=== PATIENT | male | born 1965 | race American Indian/Alaskan Native ===

== ENCOUNTER 2017-07-02 12:50 | Emergency (ER) | payer OTHER ==
[2017-07-02 15:03] LABS: Basophils % (Auto) 0.6 % (0.0-1.8); Eosinophils % (Auto) 2.3 % (0.0-4.3); Hematocrit 37.8 % (35.5-45.6); Hemoglobin 12.5 gm/dl (11.8-15.2); Mean Corpuscular HGB Conc 33 % (32-34); Mean Corpuscular Hemoglobin 30 pg (28-32); Mean Corpuscular Volume 91 fl (84-94); Platelet Count 317 K/mm3 (140-440); Red Blood Count 4.15 M/mm3 (3.65-5.03); Red Cell Distribution Width 12.3 % (13.2-15.2); White Blood Count 5.1 K/mm3 (4.5-11.0)
[2017-07-02 15:10] LABS: Anion Gap 18 mmol/L; BUN/Creatinine Ratio 12; Blood Urea Nitrogen 12 mg/dL (9-20); Calcium 8.7 mg/dL (8.4-10.2); Carbon Dioxide 24 mmol/L (22-30); Glucose 83 mg/dL (75-100); Potassium 4.6 mmol/L (3.6-5.0); Sodium 143 mmol/L (137-145)
[2017-07-02 15:54] LABS: Urine Drugs of Abuse Note Disclamer
[2017-07-02 16:06] LABS: Bilirubin,Urine NEG (Negative); Blood,Urine NEG (Negative); Ketones,Urine NEG (Negative); Leukocyte Esterase,Urine NEG (Negative); Mucus,Urine FEW /HPF; Nitrite,Urine NEG (Negative); Protein,Urine <15 mg/dL mg/dL (Negative); Urobilinogen,Urine < 2.0 mg/dL (<2.0)
--- NOTE | 2017-07-02 17:58 | Emergency Department Report ---
ED Psych HPI - General Chief Complaint: Psych Stated Complaint: /101 Time Seen by Provider: 07/02/17 14:47 Source: patient Mode of arrival: Ambulatory - History of Present Illness Initial Comments: Patient states that he has been under a lot of stress. He's had suicidal and homicidal ideation. He states that he was contemplating killing his daughter's mother. He is currently not on psychiatric medication. He does admit to depression. MD Complaint: suicidal ideation, other -: days(s) Associated Psychiatric Symptoms: suicidal ideation, homicidal ideation History of same: No Quality: intermittent Improves With: none Worsens With: none Associated Symptoms: denies other symptoms Treatments Prior to Arrival: none If Self Harm: admits thoughts of - Related Data Allergies Allergy/AdvReac Type Severity Reaction Status Date / Time No Known Allergies Allergy Unverified 07/02/17 14:11 ED Review of Systems ROS: Stated complaint: /1012 Other details as noted in HPI Constitutional: denies: chills, fever Eyes: denies: eye pain, eye discharge, vision change ENT: denies: ear pain, throat pain Respiratory: denies: cough, shortness of breath, wheezing Cardiovascular: denies: chest pain, palpitations Endocrine: no symptoms reported Gastrointestinal: denies: abdominal pain, nausea, diarrhea Genitourinary: denies: urgency, dysuria Musculoskeletal: denies: back pain, joint swelling, arthralgia Skin: denies: rash, lesions Neurological: denies: headache, weakness, paresthesias Psychiatric: as per HPI, homicidal thoughts, suicidal thoughts. denies: anxiety , depression Hematological/Lymphatic: denies: easy bleeding, easy bruising ED Past Medical Hx - Past Medical History Hx Hypertension: Yes - Surgical History Hx Pacemaker: No - Social History Smoking Status: Current Every Day Smoker Substance Use Type: Alcohol, Marijuana ED Physical Exam - General Limitations: No Limitations General appearance: alert, in no apparent distress - Head Head exam: Present: atraumatic, normocephalic - Eye Eye exam: Present: normal appearance, PERRL, EOMI. Absent: scleral icterus - ENT ENT exam: Present: mucous membranes moist - Neck Neck exam: Present: normal inspection - Respiratory Respiratory exam: Present: normal lung sounds bilaterally. Absent: respiratory distress - Cardiovascular Cardiovascular Exam: Present: regular rate, normal rhythm. Absent: systolic murmur, diastolic murmur, rubs, gallop - GI/Abdominal GI/Abdominal exam: Present: soft, normal bowel sounds. Absent: distended, tenderness, guarding, rebound, rigid - Rectal Rectal exam: Present: deferred - Extremities Exam Extremities exam: Present: normal inspection - Back Exam Back exam: Present: normal inspection - Neurological Exam Neurological exam: Present: alert, oriented X3, CN II-XII intact. Absent: motor sensory deficit - Psychiatric Psychiatric exam: Present: normal mood, flat affect - Skin Skin exam: Present: warm, dry, intact, normal color. Absent: rash ED Course Vital Signs 07/02/17 07/02/17 13:32 14:00 Temperature 98.6 F Pulse Rate 77 Respiratory 20 Rate Blood Pressure 128/70 [Left] O2 Sat by Pulse 98 100 Oximetry - Reevaluation(s) Reevaluation #1: 1013 is initiated. Discussed with the mental health counselor. The patient will be placed. 07/02/17 17:58 ED Medical Decision Making - Lab Data Result diagrams: 07/02/17 14:28 07/02/17 14:28 Laboratory Results - last 24 hr 07/02/17 07/02/17 07/02/17 14:00 14:00 14:28 WBC RBC Hgb Hct MCV MCH MCHC RDW Plt Count Lymph % (Auto) Chambers % (Auto) Eos % (Auto) Baso % (Auto) Lymph # Chambers # Eos # Baso # Seg Neutrophils % Seg Neutrophils # Sodium 143 Potassium 4.6 Chloride 106.0 Carbon Dioxide 24 Anion Gap 18 BUN 12 Creatinine 1.0 Estimated GFR > 60 BUN/Creatinine Ratio 12 Glucose 83 Calcium 8.7 Urine Color Barbi Urine Turbidity Clear Urine pH 5.0 Ur Specific [place] 1.018 Urine Protein <15 mg/dl Urine Glucose (UA) Neg Urine Ketones Neg Urine Blood Neg Urine Nitrite Neg Urine Bilirubin Neg Urine Urobilinogen < 2.0 Ur Leukocyte Esterase Neg Urine WBC (Auto) 1.0 Urine RBC (Auto) 9.0 Urine Mucus Few Urine Opiates Screen Presumptive negative Urine Methadone Screen Presumptive negative Ur Barbiturates Screen Presumptive negative Ur Phencyclidine Scrn Presumptive negative Ur Amphetamines Screen Presumptive negative U Benzodiazepines Scrn Presumptive negative Urine Cocaine Screen Presumptive negative U Marijuana (THC) Screen Presumptive positive Drugs of Abuse Note Disclamer Plasma/Serum Alcohol 07/02/17 07/02/17 14:28 14:28 WBC 5.1 RBC 4.15 Hgb 12.5 Hct 37.8 MCV 91 MCH 30 MCHC 33 RDW 12.3 L Plt Count 317 Lymph % (Auto) 26.2 Chambers % (Auto) 7.6 H Eos % (Auto) 2.3 Baso % (Auto) 0.6 Lymph # 1.3 Chambers # 0.4 Eos # 0.1 Baso # 0.0 Seg Neutrophils % 63.3 Seg Neutrophils # 3.2 Sodium Potassium Chloride Carbon Dioxide Anion Gap BUN Creatinine Estimated GFR BUN/Creatinine Ratio Glucose Calcium Urine Color Urine Turbidity Urine pH Ur Specific [place] Urine Protein Urine Glucose (UA) Urine Ketones Urine Blood Urine Nitrite Urine Bilirubin Urine Urobilinogen Ur Leukocyte Esterase Urine WBC (Auto) Urine RBC (Auto) Urine Mucus Urine Opiates Screen Urine Methadone Screen Ur Barbiturates Screen Ur Phencyclidine Scrn Ur Amphetamines Screen U Benzodiazepines Scrn Urine Cocaine Screen U Marijuana (THC) Screen Drugs of Abuse Note Plasma/Serum Alcohol < 0.01 Critical care attestation.: If time is entered above; I have spent that time in minutes in the direct care of this critically ill patient, excluding procedure time. ED Disposition Clinical Impression: Homicidal ideation, Suicidal ideation Depression Qualifiers: Depression Type: unspecified Qualified Code(s): F32.9 - Major depressive disorder, single episode, unspecified Disposition: [id number]/[id number] PSY HOSP/PSY UNIT Is pt being admited?: No Does the pt Need Aspirin: No Condition: Stable Referrals: PRIMARY CAREMD [Primary Care Provider] - 3-5 Days Time of Disposition: 18:01
[2017-07-02] MEDS ORDERED: ALUM-MAG HYDROX-SIMETH 200-200-20MG/5ML PO PRN (18:01)
[2017-07-02] MEDS ORDERED: TYLENOL PO PRN (18:01)
[2017-07-02] MEDS ORDERED: MILK OF MAGNESIA PO PRN (18:01)
--- NOTE | 2017-07-03 16:28 | Consultation ---
History of Present Illness - Reason for Consult Reason for consult: suicidal thoughts - History of Present Psychiatric Illness This is a 52-year-old man with a psychiatric history of major depression who presents to the ER due to recent expression of suicidal thoughts. Patient notes that he was at a treatment center where he was getting evaluated when he informed them of his ongoing social stressors and consequent suicidal thinking. At that time police were called and he was brought to the ER. Patient notes that he has had difficulties for several years but most recently patient has lost his source of income due to inability to play child support. Consequently , patient does not see a way to improve his social and financial situation. Patient is expressing that he is having intrusive thoughts of dying as well as harming his ex. General Appearance: casually dressed, no acute distress Sensorium/Consciousness: alert and responding to external stimuli; clear Orientation: person, place, time and situation Eye Contact: fair Attitude / Behavior: cooperative Psychomotor & Musculoskeletal Activity: WNL Mood: ok Affect: constricted, limited range Speech / Language: fluent, with normal rate/rhythm/tone Thought Processes: organized, logical, linear Thought Content: +SI/HI Perception: no AVH Insight: limited Judgement: limitied Capacity for ADLs: independent Plan: Refer for inpatient psychiatric hospitalization Start Celexa 20 mg by mouth every morning Medications and Allergies Allergies Allergy/AdvReac Type Severity Reaction Status Date / Time No Known Allergies Allergy Unverified 07/02/17 14:11 Home Medications Medication Instructions Recorded Confirmed Last Taken Type No Known Home Medications [No 07/02/17 07/02/17 Unknown History Reported Home Medications] Active Meds: Active Medications Acetaminophen (Tylenol) 650 mg PO Q4HR PRN PRN Reason: Pain MILD(1-3)/Fever >100.5/LI Al Hydrox/Mg Hydrox/Simethicone (Alum-Mag Hydrox-Simeth 510-447-24wh/5ml) 30 ml PO Q4HR PRN PRN Reason: Indigestion Magnesium Hydroxide (Milk Of Magnesia) 30 ml PO Q12HR PRN PRN Reason: Constipation Mental Status Exam - Vital signs Last Vital Signs Temp 97.9 F 07/03/17 12:26 Pulse 56 L 07/03/17 12:26 Resp 16 07/03/17 12:27 BP 132/75 07/03/17 12:26 Pulse Ox 98 07/03/17 12:27 Results Result Diagrams: 07/02/17 14:28 07/02/17 14:28 All other labs normal.
[2017-07-03] MEDS: celeXA PO SCH (17:01)
[2017-07-04] MEDS: celeXA PO SCH (11:33)
--- NOTE | 2017-07-04 13:46 | Progress Note ---
Subjective - Reason for Consult Consult date: 07/04/17 Reason for consult: Psychiatry Follow-up - Chief Complaint Chief complaint: "I was venting at the office" This is a 52-year-old man with a psychiatric history of major depression who presents to the ER due to recent expression of suicidal thoughts. Today patient is calm and cooperative during the assessment. He stated that he want his life to be better. He stated struggling with depression for many years. He stated that his last marriage and loosing his job recently exacerbated his depression. He stated having suicidal thoughts when he was talking with a counselor at [facility] prior to his admission to the hospital. He denies SI/HI's and AVH's today. He stated having trouble initiating and staying sleep. Patient stated that he took Trazodone in the past for sleep, but it didn't help. He denies any side effects of his medication. Mental Status Exam - Vital signs Last Vital Signs Temp 98.4 F 07/04/17 10:33 Pulse 74 07/04/17 10:33 Resp 16 07/04/17 10:33 BP 142/83 07/04/17 10:33 Pulse Ox 96 07/04/17 10:33 - Exam Narrative exam: MSE: Appearance: calm, cooperative Behavior: regular eye contact Speech: regular rate and tone Mood: "depressed" Affect: flat Thought Process: circumstantial Thought Content: denies SI/HI's and AVH's Motor Activity: sitting up in bed Cognition: A/Ox3 Insight: variable Judgment: variable Assessment and Plan Impression: MDD recurrent severe type. Today patient is calm and cooperative during the assessment. Recommendation/Plan: Continue 1013 with placement to inpatient psy services. Continue Celexa 20 mg PO daily for depression and start Remeron 15 mg PO HS for sleep consolidation. Discussed possible suicidality/medication induced bigg with patient reference antidepressants. Discussed generalized coping skills with patient and proper sleep hygiene.
[2017-07-04] MEDS ORDERED: REMERON PO SCH (22:00)
[2017-07-05] MEDS: celeXA PO SCH (10:04)
--- NOTE | 2017-07-05 13:55 | Progress Note ---
Subjective - Reason for Consult Consult date: 07/05/17 Reason for consult: Psychiatry Follow-up - Chief Complaint Chief complaint: "I feel better" This is a 52-year-old man with a psychiatric history of major depression who presents to the ER due to recent expression of suicidal thoughts. Today patient is calm and cooperative during the assessment. He stated having time to reflect about his future since his admission. He stated that he plan to continue his therapy once discharged. 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 He denies SI/HI's. He stated that he slept well last night. He denies any side effects of his medications. Mental Status Exam - Vital signs Last Vital Signs Temp 98.4 F 07/05/17 08:19 Pulse 71 07/05/17 08:19 Resp 18 07/05/17 08:24 BP 140/94 07/05/17 08:19 Pulse Ox 98 07/05/17 08:24 - Exam Narrative exam: MSE: Appearance: calm, cooperative Behavior: regular eye contact Speech: regular rate and tone Mood: "fine" Affect: congruent to mood Thought Process: linear Thought Content: denies SI/HI's and AVH's Motor Activity: sitting up in bed Cognition: A/Ox3 Insight: appropriate Judgment: appropriate Assessment and Plan Impression: MDD recurrent severe type. Today patient is calm and cooperative during the assessment. Recommendation/Plan: Rescind 1013. Continue Celexa 20 mg PO daily for depression and Remeron 15 mg PO HS for sleep consolidation. Discussed possible suicidality/medication induced bigg with patient reference antidepressants. Discussed generalized coping skills with patient and proper sleep hygiene. The patient given outpatient psy services for [facility]. [employer] Specialist involvement, patient may need placement.
[2017-07-05 18:54] VITALS: BP 137/85
== END 2017-07-05 18:58 | disposition home or self-care (01) ==
LOC: ED 12:50
DX: F32.9 Major depressive disorder, single episode, unspecified (principal); I10 Essential (primary) hypertension; F17.210 Nicotine dependence, cigarettes, uncomplicated; F12.10 Cannabis abuse, uncomplicated
CPT/HCPCS: 36415; 80048; 80307; 81001; 85025; 99284; G0480; 80320; 99285